=== PATIENT | female | born 1990 | race Caucasian/White ===

== ENCOUNTER 2021-12-12 12:03 | Inpatient (IN) ==
[~2021-12-12 12:03] MED LIST: *HR* FentaNYL (PF) 100 MCG/2 ML VIAL ONE; *HR* Morphine Sulfate/PF 10 MG/10 ML AMPUL ONE; CeFAZolin 2,000 MG/120 ML BAG IVPB ONE; Famotidine 20 MG/2 ML VIAL IVP ONE; Ketorolac 30 MG/ML VIAL ONE; Metoclopramide 10 MG/2 ML VIAL IVP ONE; Ondansetron 4 MG/2 ML VIAL ONE; Oxytocin 20 units/ LR 1000 mL 20 UNIT/1,000 ML BAG IVC ONE; Ringers Solution, Lactated 1,000 ML IVC ONE; Ringers Solution, Lactated 1,000 ML ONE
[2021-12-12] MEDS ORDERED: *HR* Midazolam HCl 2 MG/2 ML VIAL ONE (12:04)
[2021-12-12] MEDS ORDERED: *HR* Oxytocin 10 UNIT/ML VIAL ONE (12:08)
[2021-12-12] MEDS ORDERED: Ringers Solution, Lactated 1,000 ML IVC SCH (12:15)
[2021-12-12] MEDS ORDERED: Oxytocin 20 units/ LR 1000 mL 20 UNIT/1,000 ML BAG IVC SCH ×3 (12:15→17:18)
[2021-12-12] MEDS ORDERED: Promethazine 6.25 MG in Water for inj. (sterile) 20 ML IVPB PRN (12:26)
[2021-12-12] MEDS ORDERED: *HR* HYDROmorphone PF 0.5 MG/0.5 ML SYRINGE IVP PRN (12:26)
[2021-12-12] MEDS ORDERED: *HR* Labetalol 20 MG/4 ML SYRINGE IVP PRN (12:26)
[2021-12-12] MEDS ORDERED: Acetaminophen IV 1,000 MG/100 ML BAG IVPB PRN (12:26)
[2021-12-12 12:59] LABS: Basophils % 0.4 %; Eosinophils % 0.1 %; Hematocrit 37.6 % (35.3-44.9); Hemoglobin 12.6 g/dL (11.5-15.4); Immature Granulocytes % 0.6 % (0-4); Lymphocytes # 1.5 K/mcL (0.6-4.6); Lymphocytes % 14.2 %; Mean Corpuscular HGB Conc 33.5 g/dL (31.6-35.5); Mean Corpuscular Hemoglobin 30.4 pg (28.0-33.3); Mean Corpuscular Volume 90.8 fL (83.0-100.0); Mean Platelet Volume 9.7 fL (9.4-12.4); Monocytes # 0.7 K/mcL (0.0-1.3); Monocytes % 6.7 %; Neutrophils # 8.2 K/mcL (1.6-8.9); Platelet Count 229 K/mcL (140-400); Red Blood Count 4.14 M/mcL (3.82-4.97); Red Cell Distribution Width 12.5 % (11.5-14.5); White Blood Count 10.4 K/mcL (4.3-11.1)
[2021-12-12 13:01] LABS: Amphetamine Screen,Urine Negative ng/mL (Cutoff=1000); Barbiturate Screen,Urine Negative ng/mL (Cutoff=200); Benzodiazepines Screen,Urine Negative ng/mL (Cutoff=200); Cannabinoid Screen,Urine Negative ng/mL (Cutoff = 50); Cocaine Screen,Urine Negative ng/mL (Cutoff= 300); Opiate Screen,Urine Negative ng/mL (Cutoff=300); Phencyclidine Screen,Urine Negative ng/mL (Cutoff=25)
[2021-12-12 13:33] LABS: Influenza A PCR Negative (Negative); Influenza B PCR Negative (Negative); Resp. Syncytial Virus PCR Negative (Negative)
[2021-12-12 13:41] LABS: SARS-CoV-2 by PCR (In House) Negative (Negative)
[2021-12-12] MEDS ORDERED: EPHEDrine 50 MG/ML VIAL ONE (14:00)
[2021-12-12] MEDS ORDERED: Acetaminophen IV 1,000 MG/100 ML BAG IVPB ONE (14:58)
[2021-12-12] MEDS ORDERED: Ondansetron 4 MG/2 ML VIAL IVP PRN (17:18)
[2021-12-12] MEDS ORDERED: Rho Immune Globulin 1,500 UNIT SYRINGE IM ONE (17:18)
[2021-12-12] MEDS ORDERED: Metoclopramide 10 MG/2 ML VIAL IVP PRN (17:18)
[2021-12-12] MEDS: Ibuprofen 600 MG TABLET PO SCH (18:33)
[2021-12-12] MEDS: Acetaminophen 325 MG TABLET PO SCH (21:07)
[2021-12-13] MEDS: Ibuprofen 600 MG TABLET PO SCH ×4 (00:40→20:36)
[2021-12-13] MEDS: Acetaminophen 325 MG TABLET PO SCH ×3 (05:25→18:08)
[2021-12-13 06:13] LABS: Basophils % 0.3 %; Eosinophils % 0.3 %; Hematocrit 33.6 % (35.3-44.9); Hemoglobin 11.3 g/dL (11.5-15.4); Immature Granulocytes % 0.4 % (0-4); Lymphocytes # 2.2 K/mcL (0.6-4.6); Lymphocytes % 15.5 %; Mean Corpuscular HGB Conc 33.6 g/dL (31.6-35.5); Mean Corpuscular Hemoglobin 30.9 pg (28.0-33.3); Mean Corpuscular Volume 91.8 fL (83.0-100.0); Mean Platelet Volume 9.6 fL (9.4-12.4); Monocytes # 1.3 K/mcL (0.0-1.3); Monocytes % 9.4 %; Neutrophils # 10.5 K/mcL (1.6-8.9); Platelet Count 217 K/mcL (140-400); Red Blood Count 3.66 M/mcL (3.82-4.97); Red Cell Distribution Width 12.4 % (11.5-14.5); Segmented Neutrophils % 74.1 %; White Blood Count 14.2 K/mcL (4.3-11.1)
[2021-12-13] MEDS: Prenatal Vit/FA 1 EACH TABLET PO SCH (08:34)
[2021-12-13] MEDS ORDERED: Prenatal Vit/FA 1 EACH TABLET PO SCH (09:00)
[2021-12-13] MEDS: *HR* OxyCODONE Immed Rel 5 MG TABLET PO PRN ×2 (16:28→21:56)
[2021-12-13] MEDS: Simethicone 80 MG TAB.CHEW PO PRN (18:11)
[2021-12-14] MEDS: Simethicone 80 MG TAB.CHEW PO PRN (00:05)
[2021-12-14] MEDS: Acetaminophen 325 MG TABLET PO SCH ×2 (00:05→06:58)
[2021-12-14] MEDS: Ibuprofen 600 MG TABLET PO SCH (03:38)
[2021-12-14 06:49] VITALS: BP 131/86; PULSE 82; TEMP 98.4; O2SAT 99
[2021-12-14] MEDS: Prenatal Vit/FA 1 EACH TABLET PO SCH (09:05)
== END 2021-12-14 13:40 | disposition home or self-care (01) | DRG 786 ==
LOC: 1NENULAB → 1NENUOBS 17:53
PROVIDERS: ADMIT Student in an Organized Health Care Education/Training Program; ATTEND Student in an Organized Health Care Education/Training Program